=== PATIENT | female | born 1950 | race Hispanic/Latino ===

== ENCOUNTER 2016-06-08 08:07 | Outpatient (CLI) | payer BC | END 2016-06-08 08:08 | LOC: NAVSJIPCSP 08:07 | PROVIDERS: ATTEND Internal Medicine | DX: E78.5 Hyperlipidemia, unspecified (principal) | CPT/HCPCS: 36415; 80061 ==

== ENCOUNTER 2016-10-28 09:02 | Outpatient (CLI) | payer BC ==
[2016-10-28 12:38] LABS: Cardiac Risk 2.5 (Less than 4.5)
== END 2016-10-28 09:03 | disposition home or self-care (01) ==
LOC: NAVSJIPCSP 09:02
PROVIDERS: ATTEND Internal Medicine
DX: E78.5 Hyperlipidemia, unspecified (principal)
CPT/HCPCS: 36415; 80061

== ENCOUNTER 2020-07-23 13:18 | Inpatient (IN) | payer BC, MEDICARE ==
[2020-07-23] MEDS ORDERED: Acetaminophen/Codeine 30-300mg Tablet PO PRN (14:34)
[2020-07-23] MEDS: Acetaminophen 500 MG TAB PO PRN (15:23)
[2020-07-23] MEDS: Ferrous Sulfate 325 MG TAB PO SCH (17:35)
[2020-07-23] MEDS: Enoxaparin Sodium 40 MG/0.4 ML SYRINGE SC SCH (21:51)
[2020-07-24 05:52] LABS: #Basophils 0.1 thou/uL (0.0-0.2); #Eosinphils 0.4 thou/uL (0.0-0.7); #Lymphocytes 1.7 thou/uL (1.20-3.40); #Monocytes 0.6 thou/uL (0.11-0.59); #Neutrophils 1.6 thou/uL (1.40-6.50); %Basophils 1.5 % (0.0-1.0); %Lymphocytes 37.9 % (21.0-51.0); %Monocytes 14.2 % (0.0-10.0); %Neutrophils 36.5 % (42.0-75.0); Hemoglobin 11.7 g/dL (12.0-16.0); Mean Corpuscular HGB CONC 29.7 g/dL (32.0-36.0); Mean Corpuscular Hemoglobin 28.9 pg (27.0-31.0); Mean Corpuscular Volume 97.5 fL (78.0-98.0); Mean Platelet Volume 6.9 fL (7.4-10.4); Platelet Count 219 thou/uL (130-400); RBC Distribution Width 13.3 % (11.5-14.5); Red Blood Cell (RBC) Count 4.05 mill/uL (4.20-5.40); White Blood Cell (WBC) Count 4.4 thou/uL (4.8-10.8)
[2020-07-24 06:06] LABS: Anion Gap 14 mmol/L (10-20); BUN (Urea Nitrogen) 8 mg/dL (9.8-20.1); Calc. Creatinine Clearance 123 mL/min (70-130); Calcium 8.6 mg/dL (7.8-10.44); Carbon Dioxide 25 mmol/L (23-31); Chloride 106 mmol/L (98-107); Glucose 92 mg/dL (80-115); Potassium 3.5 mmol/L (3.5-5.1); Sodium 141 mmol/L (136-145)
[2020-07-24] MEDS: CeleCOXIB 100 MG CAP PO SCH (08:22)
[2020-07-24] MEDS: Bupropion 150 MG XL TAB PO SCH (08:22)
[2020-07-24] MEDS: Ferrous Sulfate 325 MG TAB PO SCH ×2 (08:22→17:46)
[2020-07-24] MEDS: Acetaminophen 500 MG TAB PO PRN (08:23)
[2020-07-24] MEDS: Gabapentin 300 MG CAP PO SCH ×2 (14:45→21:05)
[2020-07-24] MEDS: HYDROcodone/Acetaminophen 5/325 mg Tablet PO PRN (14:46)
[2020-07-24] MEDS: Enoxaparin Sodium 40 MG/0.4 ML SYRINGE SC SCH (21:06)
[2020-07-25] MEDS: Gabapentin 300 MG CAP PO SCH ×3 (08:17→21:16)
[2020-07-25] MEDS: Ferrous Sulfate 325 MG TAB PO SCH ×2 (08:17→16:51)
[2020-07-25] MEDS: CeleCOXIB 100 MG CAP PO SCH (08:17)
[2020-07-25] MEDS: Bupropion 150 MG XL TAB PO SCH (08:17)
[2020-07-25] MEDS: HYDROcodone/Acetaminophen 5/325 mg Tablet PO PRN ×2 (08:19→19:29)
[2020-07-25] MEDS: Enoxaparin Sodium 40 MG/0.4 ML SYRINGE SC SCH (21:17)
[2020-07-26] MEDS: Bupropion 150 MG XL TAB PO SCH (08:08)
[2020-07-26] MEDS: Ferrous Sulfate 325 MG TAB PO SCH ×2 (08:08→17:42)
[2020-07-26] MEDS: Gabapentin 300 MG CAP PO SCH ×3 (08:08→21:17)
[2020-07-26] MEDS: CeleCOXIB 100 MG CAP PO SCH (08:08)
[2020-07-26] MEDS: Enoxaparin Sodium 40 MG/0.4 ML SYRINGE SC SCH (21:18)
[2020-07-27] MEDS: Bupropion 150 MG XL TAB PO SCH (09:24)
[2020-07-27] MEDS: Ferrous Sulfate 325 MG TAB PO SCH ×2 (09:25→17:35)
[2020-07-27] MEDS: CeleCOXIB 100 MG CAP PO SCH (09:25)
[2020-07-27] MEDS: Gabapentin 300 MG CAP PO SCH ×3 (09:25→21:51)
[2020-07-27] MEDS: Enoxaparin Sodium 40 MG/0.4 ML SYRINGE SC SCH (21:50)
[2020-07-27] MEDS: Docusate 100 MG CAP PO SCH (21:51)
[2020-07-28] MEDS: Polyethylene Glycol 3350 17 GM Packet PO PRN (05:18)
[2020-07-28 05:22] LABS: #Basophils 0.1 thou/uL (0.0-0.2); #Eosinphils 0.3 thou/uL (0.0-0.7); #Lymphocytes 1.6 thou/uL (1.20-3.40); #Monocytes 0.6 thou/uL (0.11-0.59); #Neutrophils 2.4 thou/uL (1.40-6.50); %Eosinophils 5.9 % (0.0-10.0); %Lymphocytes 32.7 % (21.0-51.0); %Monocytes 11.7 % (0.0-10.0); %Neutrophils 47.8 % (42.0-75.0); Hemoglobin 11.4 g/dL (12.0-16.0); Mean Corpuscular HGB CONC 29.3 g/dL (32.0-36.0); Mean Corpuscular Hemoglobin 28.7 pg (27.0-31.0); Mean Corpuscular Volume 97.8 fL (78.0-98.0); Mean Platelet Volume 7.2 fL (7.4-10.4); Platelet Count 243 thou/uL (130-400); RBC Distribution Width 13.1 % (11.5-14.5); Red Blood Cell (RBC) Count 3.99 mill/uL (4.20-5.40)
[2020-07-28 05:35] LABS: Anion Gap 15 mmol/L (10-20); BUN (Urea Nitrogen) 11 mg/dL (9.8-20.1); Calc. Creatinine Clearance 112 mL/min (70-130); Calcium 8.9 mg/dL (7.8-10.44); Carbon Dioxide 24 mmol/L (23-31); Chloride 107 mmol/L (98-107); Glucose 114 mg/dL (80-115); Potassium 3.7 mmol/L (3.5-5.1); Sodium 142 mmol/L (136-145)
[2020-07-28] MEDS: Bupropion 150 MG XL TAB PO SCH (08:21)
[2020-07-28] MEDS: CeleCOXIB 100 MG CAP PO SCH (08:21)
[2020-07-28] MEDS: Ferrous Sulfate 325 MG TAB PO SCH ×2 (08:21→17:03)
[2020-07-28] MEDS: Docusate 100 MG CAP PO SCH ×2 (08:22→20:09)
[2020-07-28] MEDS: Gabapentin 300 MG CAP PO SCH ×3 (08:22→20:10)
[2020-07-28] MEDS: HYDROcodone/Acetaminophen 5/325 mg Tablet PO PRN ×2 (08:23→20:08)
[2020-07-28] MEDS: Enoxaparin Sodium 40 MG/0.4 ML SYRINGE SC SCH (20:09)
[2020-07-29] MEDS: HYDROcodone/Acetaminophen 5/325 mg Tablet PO PRN ×2 (06:20→15:01)
[2020-07-29] MEDS: Ferrous Sulfate 325 MG TAB PO SCH ×2 (08:32→17:45)
[2020-07-29] MEDS: Bupropion 150 MG XL TAB PO SCH (08:32)
[2020-07-29] MEDS: CeleCOXIB 100 MG CAP PO SCH (08:32)
[2020-07-29] MEDS: Gabapentin 300 MG CAP PO SCH ×3 (08:33→20:06)
[2020-07-29] MEDS: Docusate 100 MG CAP PO SCH ×2 (08:33→20:06)
[2020-07-29] MEDS: Enoxaparin Sodium 40 MG/0.4 ML SYRINGE SC SCH (20:07)
[2020-07-30] MEDS: HYDROcodone/Acetaminophen 5/325 mg Tablet PO PRN ×2 (06:44→15:21)
[2020-07-30] MEDS: Ferrous Sulfate 325 MG TAB PO SCH ×2 (08:19→17:33)
[2020-07-30] MEDS: Gabapentin 300 MG CAP PO SCH ×3 (08:19→20:49)
[2020-07-30] MEDS: Bupropion 150 MG XL TAB PO SCH (08:19)
[2020-07-30] MEDS: Docusate 100 MG CAP PO SCH ×2 (08:19→20:49)
[2020-07-30] MEDS: CeleCOXIB 100 MG CAP PO SCH (08:20)
[2020-07-30] MEDS: Polyethylene Glycol 3350 17 GM Packet PO PRN (15:19)
[2020-07-30] MEDS: Enoxaparin Sodium 40 MG/0.4 ML SYRINGE SC SCH (20:49)
[2020-07-31] MEDS: HYDROcodone/Acetaminophen 5/325 mg Tablet PO PRN ×2 (09:10→20:15)
[2020-07-31] MEDS: CeleCOXIB 100 MG CAP PO SCH (09:11)
[2020-07-31] MEDS: Gabapentin 300 MG CAP PO SCH ×3 (09:12→20:14)
[2020-07-31] MEDS: Bupropion 150 MG XL TAB PO SCH (09:13)
[2020-07-31] MEDS: Ferrous Sulfate 325 MG TAB PO SCH ×2 (09:13→16:03)
[2020-07-31] MEDS: Docusate 100 MG CAP PO SCH ×2 (09:13→20:18)
[2020-07-31] MEDS: Enoxaparin Sodium 40 MG/0.4 ML SYRINGE SC SCH (20:19)
[2020-08-01] MEDS: Docusate 100 MG CAP PO SCH ×2 (09:00→20:25)
[2020-08-01] MEDS: Ferrous Sulfate 325 MG TAB PO SCH ×2 (09:00→17:29)
[2020-08-01] MEDS: CeleCOXIB 100 MG CAP PO SCH (09:00)
[2020-08-01] MEDS: Gabapentin 300 MG CAP PO SCH ×3 (09:00→20:27)
[2020-08-01] MEDS: Bupropion 150 MG XL TAB PO SCH (09:01)
[2020-08-01] MEDS: HYDROcodone/Acetaminophen 5/325 mg Tablet PO PRN ×2 (13:31→20:31)
[2020-08-01] MEDS: Enoxaparin Sodium 40 MG/0.4 ML SYRINGE SC SCH (20:26)
[2020-08-02] MEDS: Bupropion 150 MG XL TAB PO SCH (09:17)
[2020-08-02] MEDS: Gabapentin 300 MG CAP PO SCH ×3 (09:17→20:33)
[2020-08-02] MEDS: Docusate 100 MG CAP PO SCH ×2 (09:19→20:33)
[2020-08-02] MEDS: Ferrous Sulfate 325 MG TAB PO SCH ×2 (09:19→17:05)
[2020-08-02] MEDS: CeleCOXIB 100 MG CAP PO SCH (09:19)
[2020-08-02] MEDS: Polyethylene Glycol 3350 17 GM Packet PO PRN (09:21)
[2020-08-02] MEDS: HYDROcodone/Acetaminophen 5/325 mg Tablet PO PRN (17:05)
[2020-08-02] MEDS: Enoxaparin Sodium 40 MG/0.4 ML SYRINGE SC SCH (20:34)
[2020-08-03] MEDS: CeleCOXIB 100 MG CAP PO SCH (08:12)
[2020-08-03] MEDS: Ferrous Sulfate 325 MG TAB PO SCH ×2 (08:12→17:07)
[2020-08-03] MEDS: Bupropion 150 MG XL TAB PO SCH (08:12)
[2020-08-03] MEDS: Docusate 100 MG CAP PO SCH ×2 (08:12→20:32)
[2020-08-03] MEDS: Gabapentin 300 MG CAP PO SCH ×3 (08:13→20:32)
[2020-08-03] MEDS: HYDROcodone/Acetaminophen 5/325 mg Tablet PO PRN (11:15)
[2020-08-03] MEDS: Polyethylene Glycol 3350 17 GM Packet PO PRN (14:49)
[2020-08-03] MEDS: Enoxaparin Sodium 40 MG/0.4 ML SYRINGE SC SCH (20:33)
[2020-08-03 22:16] VITALS: BMI 37.0
[2020-08-04] MEDS: HYDROcodone/Acetaminophen 5/325 mg Tablet PO PRN ×2 (07:58→15:46)
[2020-08-04] MEDS: Gabapentin 300 MG CAP PO SCH ×3 (07:59→20:36)
[2020-08-04] MEDS: Ferrous Sulfate 325 MG TAB PO SCH ×2 (07:59→18:03)
[2020-08-04] MEDS: Bupropion 150 MG XL TAB PO SCH (07:59)
[2020-08-04] MEDS: CeleCOXIB 100 MG CAP PO SCH (08:00)
[2020-08-04] MEDS: Docusate 100 MG CAP PO SCH ×2 (08:01→20:36)
[2020-08-04] MEDS: Polyethylene Glycol 3350 17 GM Packet PO PRN (08:02)
[2020-08-04] MEDS: Enoxaparin Sodium 40 MG/0.4 ML SYRINGE SC SCH (20:38)
[2020-08-04] MEDS: Acetaminophen 500 MG TAB PO PRN (20:38)
[2020-08-05] MEDS: HYDROcodone/Acetaminophen 5/325 mg Tablet PO PRN ×2 (06:03→20:29)
[2020-08-05] MEDS: CeleCOXIB 100 MG CAP PO SCH (08:56)
[2020-08-05] MEDS: Bupropion 150 MG XL TAB PO SCH (08:58)
[2020-08-05] MEDS: Ferrous Sulfate 325 MG TAB PO SCH ×2 (08:58→17:34)
[2020-08-05] MEDS: Gabapentin 300 MG CAP PO SCH ×2 (08:58→20:28)
[2020-08-05] MEDS: Docusate 100 MG CAP PO SCH ×2 (08:59→20:28)
[2020-08-05] MEDS: Polyethylene Glycol 3350 17 GM Packet PO SCH (08:59)
[2020-08-05] MEDS: Enoxaparin Sodium 40 MG/0.4 ML SYRINGE SC SCH (20:28)
[2020-08-06] MEDS: Gabapentin 300 MG CAP PO SCH ×4 (07:20→21:05)
[2020-08-06] MEDS: HYDROcodone/Acetaminophen 5/325 mg Tablet PO PRN ×2 (08:21→21:05)
[2020-08-06] MEDS: Bupropion 150 MG XL TAB PO SCH (08:22)
[2020-08-06] MEDS: Ferrous Sulfate 325 MG TAB PO SCH ×2 (08:22→16:51)
[2020-08-06] MEDS: CeleCOXIB 100 MG CAP PO SCH (08:23)
[2020-08-06] MEDS: Docusate 100 MG CAP PO SCH ×2 (08:23→21:05)
[2020-08-06] MEDS: Polyethylene Glycol 3350 17 GM Packet PO SCH (08:24)
[2020-08-06] MEDS: Enoxaparin Sodium 40 MG/0.4 ML SYRINGE SC SCH (21:05)
[2020-08-07] MEDS: HYDROcodone/Acetaminophen 5/325 mg Tablet PO PRN ×3 (05:58→20:19)
[2020-08-07] MEDS: Ferrous Sulfate 325 MG TAB PO SCH ×2 (08:15→16:27)
[2020-08-07] MEDS: CeleCOXIB 100 MG CAP PO SCH (08:15)
[2020-08-07] MEDS: Bupropion 150 MG XL TAB PO SCH (08:15)
[2020-08-07] MEDS: Docusate 100 MG CAP PO SCH ×2 (08:16→20:20)
[2020-08-07] MEDS: Gabapentin 300 MG CAP PO SCH ×3 (08:16→20:20)
[2020-08-07] MEDS: Polyethylene Glycol 3350 17 GM Packet PO SCH (08:17)
[2020-08-07] MEDS: Enoxaparin Sodium 40 MG/0.4 ML SYRINGE SC SCH (20:20)
[2020-08-08] MEDS: HYDROcodone/Acetaminophen 5/325 mg Tablet PO PRN (08:02)
[2020-08-08] MEDS: CeleCOXIB 100 MG CAP PO SCH (08:02)
[2020-08-08] MEDS: Docusate 100 MG CAP PO SCH (08:02)
[2020-08-08] MEDS: Gabapentin 300 MG CAP PO SCH (08:03)
[2020-08-08] MEDS: Bupropion 150 MG XL TAB PO SCH (08:03)
[2020-08-08] MEDS: Ferrous Sulfate 325 MG TAB PO SCH (08:04)
[2020-08-08] MEDS: Polyethylene Glycol 3350 17 GM Packet PO SCH (08:04)
[2020-08-08 08:39] VITALS: BP 109/59; TEMP 97.8
== END 2020-08-08 10:00 | disposition home or self-care (01) | DRG 560 ==
LOC: NAV ACUTE 13:18
PROVIDERS: ADMIT Internal Medicine; ATTEND Internal Medicine
DX: S72.91XD Unspecified fracture of right femur, subsequent encounter for closed fracture with routine healing (principal); D62 Acute posthemorrhagic anemia; E66.01 Morbid (severe) obesity due to excess calories; F41.9 Anxiety disorder, unspecified; F32.9 Major depressive disorder, single episode, unspecified; Z96.643 Presence of artificial hip joint, bilateral; K21.9 Gastro-esophageal reflux disease without esophagitis; M19.90 Unspecified osteoarthritis, unspecified site; G62.9 Polyneuropathy, unspecified; W19.XXXD Unspecified fall, subsequent encounter; Z68.37 Body mass index [BMI] 37.0-37.9, adult; R53.81 Other malaise; Z87.442 Personal history of urinary calculi
CPT/HCPCS: 80048; 85025; J1650

== ENCOUNTER 2021-03-05 13:27 | Inpatient (IN) | payer BC, MEDICARE ==
[2021-03-05] MEDS: Docusate 100 MG CAP PO SCH (20:34)
[2021-03-05] MEDS: Gabapentin 300 MG CAP PO SCH (20:34)
[2021-03-05] MEDS: Ascorbic Acid 500 mg Chewable Tablet PO SCH (20:36)
[2021-03-05] MEDS: HYDROcodone/Acetaminophen 10/325 mg Tablet PO PRN (20:36)
[2021-03-05] MEDS: Aspirin 81 mg Enteric Coated Tablet PO SCH (20:36)
[2021-03-06] MEDS: HYDROcodone/Acetaminophen 10/325 mg Tablet PO PRN ×4 (05:28→20:34)
[2021-03-06 06:32] LABS: #Basophils 0.1 thou/uL (0.0-0.2); #Eosinphils 0.5 thou/uL (0.0-0.7); #Lymphocytes 1.5 thou/uL (1.20-3.40); #Monocytes 0.9 thou/uL (0.11-0.59); #Neutrophils 3.6 thou/uL (1.40-6.50); %Basophils 1.5 % (0.0-1.0); %Eosinophils 7.3 % (0.0-10.0); %Lymphocytes 22.9 % (21.0-51.0); %Monocytes 13.8 % (0.0-10.0); %Neutrophils 54.5 % (42.0-75.0); Hemoglobin 8.2 g/dL (12.0-16.0); Mean Corpuscular HGB CONC 32.1 g/dL (32.0-36.0); Mean Corpuscular Hemoglobin 31.6 pg (27.0-31.0); Mean Corpuscular Volume 98.4 fL (78.0-98.0); Mean Platelet Volume 5.8 fL (7.4-10.4); Platelet Count 376 thou/uL (130-400); RBC Distribution Width 12.4 % (11.5-14.5); Red Blood Cell (RBC) Count 2.58 mill/uL (4.20-5.40); White Blood Cell (WBC) Count 6.6 thou/uL (4.8-10.8)
[2021-03-06 06:50] LABS: ALT (SGPT) 10 U/L (8-55); AST (SGOT) 14 U/L (5-34); Albumin 2.8 g/dL (3.4-4.8); Alkaline Phosphatase 94 U/L (40-110); Anion Gap 12 mmol/L (10-20); BUN (Urea Nitrogen) 10 mg/dL (9.8-20.1); Bilirubin, Total 0.7 mg/dL (0.2-1.2); Calc. Creatinine Clearance 123 mL/min (70-130); Calcium 8.9 mg/dL (7.8-10.44); Carbon Dioxide 28 mmol/L (23-31); Chloride 101 mmol/L (98-107); Globulin 2.7 g/dL (2.4-3.5); Glucose 111 mg/dL (80-115); Potassium 3.8 mmol/L (3.5-5.1); Protein, Total 5.5 g/dL (5.8-8.1); Sodium 137 mmol/L (136-145)
[2021-03-06] MEDS: Bupropion 150 MG XL TAB PO SCH (08:31)
[2021-03-06] MEDS: Gabapentin 300 MG CAP PO SCH ×3 (08:31→20:33)
[2021-03-06] MEDS: Aspirin 81 mg Enteric Coated Tablet PO SCH ×2 (08:31→20:33)
[2021-03-06] MEDS: Docusate 100 MG CAP PO SCH ×2 (08:31→20:33)
[2021-03-06] MEDS: Ascorbic Acid 500 mg Chewable Tablet PO SCH ×2 (08:31→20:33)
[2021-03-06] MEDS: CeleCOXIB 100 MG CAP PO SCH (08:33)
[2021-03-07] MEDS: HYDROcodone/Acetaminophen 10/325 mg Tablet PO PRN ×3 (06:51→20:07)
[2021-03-07] MEDS: Bupropion 150 MG XL TAB PO SCH (07:42)
[2021-03-07] MEDS: CeleCOXIB 100 MG CAP PO SCH (07:42)
[2021-03-07] MEDS: Docusate 100 MG CAP PO SCH ×2 (07:42→20:06)
[2021-03-07] MEDS: Aspirin 81 mg Enteric Coated Tablet PO SCH ×2 (07:43→20:06)
[2021-03-07] MEDS: Ascorbic Acid 500 mg Chewable Tablet PO SCH ×2 (07:43→20:06)
[2021-03-07] MEDS: Gabapentin 300 MG CAP PO SCH ×3 (07:43→20:06)
[2021-03-07 13:57] LABS: SARS-CoV-2 PCR by NAA Not Detected (NotDetected)
[2021-03-08] MEDS: CeleCOXIB 100 MG CAP PO SCH (07:29)
[2021-03-08] MEDS: Ascorbic Acid 500 mg Chewable Tablet PO SCH ×2 (07:29→20:37)
[2021-03-08] MEDS: Bupropion 150 MG XL TAB PO SCH (07:30)
[2021-03-08] MEDS: Aspirin 81 mg Enteric Coated Tablet PO SCH ×2 (07:30→20:37)
[2021-03-08] MEDS: Gabapentin 300 MG CAP PO SCH ×3 (07:30→20:35)
[2021-03-08] MEDS: HYDROcodone/Acetaminophen 10/325 mg Tablet PO PRN ×4 (07:31→21:51)
[2021-03-08] MEDS: Docusate 100 MG CAP PO SCH ×2 (07:31→20:35)
[2021-03-08] MEDS: Acetaminophen 500 MG TAB PO PRN (17:15)
[2021-03-09] MEDS: Aspirin 81 mg Enteric Coated Tablet PO SCH ×2 (07:49→20:40)
[2021-03-09] MEDS: Ascorbic Acid 500 mg Chewable Tablet PO SCH ×2 (07:49→20:39)
[2021-03-09] MEDS: Docusate 100 MG CAP PO SCH ×2 (07:50→20:39)
[2021-03-09] MEDS: Bupropion 150 MG XL TAB PO SCH (07:50)
[2021-03-09] MEDS: CeleCOXIB 100 MG CAP PO SCH (07:51)
[2021-03-09] MEDS: Gabapentin 300 MG CAP PO SCH ×3 (07:52→20:39)
[2021-03-09] MEDS: HYDROcodone/Acetaminophen 10/325 mg Tablet PO PRN ×3 (07:53→19:35)
[2021-03-10] MEDS: HYDROcodone/Acetaminophen 5/325 mg Tablet PO PRN (05:53)
[2021-03-10 06:17] LABS: #Basophils 0.1 thou/uL (0.0-0.2); #Eosinphils 0.5 thou/uL (0.0-0.7); #Lymphocytes 1.5 thou/uL (1.20-3.40); #Monocytes 0.8 thou/uL (0.11-0.59); #Neutrophils 3.1 thou/uL (1.40-6.50); %Basophils 1.2 % (0.0-1.0); %Eosinophils 7.9 % (0.0-10.0); %Lymphocytes 25.4 % (21.0-51.0); %Monocytes 12.9 % (0.0-10.0); %Neutrophils 52.5 % (42.0-75.0); Hemoglobin 9.1 g/dL (12.0-16.0); Mean Corpuscular HGB CONC 31.9 g/dL (32.0-36.0); Mean Corpuscular Hemoglobin 31.4 pg (27.0-31.0); Mean Corpuscular Volume 98.4 fL (78.0-98.0); Mean Platelet Volume 5.6 fL (7.4-10.4); Platelet Count 467 thou/uL (130-400); RBC Distribution Width 12.9 % (11.5-14.5); Red Blood Cell (RBC) Count 2.89 mill/uL (4.20-5.40)
[2021-03-10] MEDS: Docusate 100 MG CAP PO SCH ×2 (07:40→20:40)
[2021-03-10] MEDS: Aspirin 81 mg Enteric Coated Tablet PO SCH ×2 (07:41→20:40)
[2021-03-10] MEDS: Bupropion 150 MG XL TAB PO SCH (07:41)
[2021-03-10] MEDS: Gabapentin 300 MG CAP PO SCH ×3 (07:41→20:40)
[2021-03-10] MEDS: Ascorbic Acid 500 mg Chewable Tablet PO SCH ×2 (07:41→20:40)
[2021-03-10] MEDS: CeleCOXIB 100 MG CAP PO SCH (07:41)
[2021-03-10] MEDS: HYDROcodone/Acetaminophen 10/325 mg Tablet PO PRN ×2 (09:48→18:20)
[2021-03-11] MEDS: Docusate 100 MG CAP PO SCH ×2 (07:51→21:01)
[2021-03-11] MEDS: Bupropion 150 MG XL TAB PO SCH (07:51)
[2021-03-11] MEDS: Ascorbic Acid 500 mg Chewable Tablet PO SCH ×2 (07:52→21:02)
[2021-03-11] MEDS: Gabapentin 300 MG CAP PO SCH ×3 (07:52→21:02)
[2021-03-11] MEDS: Aspirin 81 mg Enteric Coated Tablet PO SCH ×2 (07:52→21:01)
[2021-03-11] MEDS: CeleCOXIB 100 MG CAP PO SCH (07:52)
[2021-03-11] MEDS: HYDROcodone/Acetaminophen 10/325 mg Tablet PO PRN ×2 (07:53→18:15)
[2021-03-12] MEDS: HYDROcodone/Acetaminophen 5/325 mg Tablet PO PRN (03:28)
[2021-03-12] MEDS: Docusate 100 MG CAP PO SCH ×2 (08:58→21:37)
[2021-03-12] MEDS: Aspirin 81 mg Enteric Coated Tablet PO SCH ×2 (08:58→21:37)
[2021-03-12] MEDS: Gabapentin 300 MG CAP PO SCH ×3 (08:58→21:36)
[2021-03-12] MEDS: Ascorbic Acid 500 mg Chewable Tablet PO SCH ×2 (09:00→21:36)
[2021-03-12] MEDS: Bupropion 150 MG XL TAB PO SCH (09:00)
[2021-03-12] MEDS: CeleCOXIB 100 MG CAP PO SCH (09:00)
[2021-03-12] MEDS: HYDROcodone/Acetaminophen 10/325 mg Tablet PO PRN (09:01)
[2021-03-13] MEDS: HYDROcodone/Acetaminophen 5/325 mg Tablet PO PRN ×2 (08:35→18:13)
[2021-03-13] MEDS: Docusate 100 MG CAP PO SCH ×2 (09:30→20:49)
[2021-03-13] MEDS: Bupropion 150 MG XL TAB PO SCH (09:30)
[2021-03-13] MEDS: CeleCOXIB 100 MG CAP PO SCH (09:31)
[2021-03-13] MEDS: Ascorbic Acid 500 mg Chewable Tablet PO SCH ×2 (09:32→20:49)
[2021-03-13] MEDS: Gabapentin 300 MG CAP PO SCH ×3 (09:32→20:49)
[2021-03-13] MEDS: Aspirin 81 mg Enteric Coated Tablet PO SCH ×2 (09:32→20:49)
[2021-03-13] MEDS: Acetaminophen 500 MG TAB PO PRN (10:13)
[2021-03-14] MEDS: Gabapentin 300 MG CAP PO SCH ×3 (08:22→21:14)
[2021-03-14] MEDS: Bupropion 150 MG XL TAB PO SCH (08:23)
[2021-03-14] MEDS: CeleCOXIB 100 MG CAP PO SCH (08:24)
[2021-03-14] MEDS: Docusate 100 MG CAP PO SCH ×2 (08:24→21:14)
[2021-03-14] MEDS: Aspirin 81 mg Enteric Coated Tablet PO SCH ×2 (08:25→21:14)
[2021-03-14] MEDS: Ascorbic Acid 500 mg Chewable Tablet PO SCH ×2 (08:30→21:14)
[2021-03-14] MEDS: HYDROcodone/Acetaminophen 5/325 mg Tablet PO PRN (18:41)
[2021-03-15] MEDS: CeleCOXIB 100 MG CAP PO SCH (08:32)
[2021-03-15] MEDS: Docusate 100 MG CAP PO SCH ×2 (08:32→20:37)
[2021-03-15] MEDS: Gabapentin 300 MG CAP PO SCH ×3 (08:33→20:36)
[2021-03-15] MEDS: Ascorbic Acid 500 mg Chewable Tablet PO SCH ×2 (08:34→20:37)
[2021-03-15] MEDS: Aspirin 81 mg Enteric Coated Tablet PO SCH ×2 (08:34→20:37)
[2021-03-15] MEDS: Bupropion 150 MG XL TAB PO SCH (08:34)
[2021-03-15] MEDS: HYDROcodone/Acetaminophen 5/325 mg Tablet PO PRN (17:14)
[2021-03-15 17:23] LABS: SARS-CoV-2 PCR by NAA Not Detected (NotDetected)
[2021-03-16] MEDS: Aspirin 81 mg Enteric Coated Tablet PO SCH ×2 (09:03→20:25)
[2021-03-16] MEDS: Gabapentin 300 MG CAP PO SCH ×3 (09:03→20:25)
[2021-03-16] MEDS: CeleCOXIB 100 MG CAP PO SCH (09:04)
[2021-03-16] MEDS: Docusate 100 MG CAP PO SCH ×2 (09:05→20:25)
[2021-03-16] MEDS: Bupropion 150 MG XL TAB PO SCH (09:05)
[2021-03-16] MEDS: Ascorbic Acid 500 mg Chewable Tablet PO SCH ×2 (09:05→20:25)
[2021-03-16] MEDS: HYDROcodone/Acetaminophen 5/325 mg Tablet PO PRN ×2 (14:43→20:22)
[2021-03-17 06:50] LABS: #Basophils 0.1 thou/uL (0.0-0.2); #Eosinphils 0.5 thou/uL (0.0-0.7); #Lymphocytes 1.3 thou/uL (1.20-3.40); #Monocytes 0.8 thou/uL (0.11-0.59); #Neutrophils 1.8 thou/uL (1.40-6.50); %Basophils 2.8 % (0.0-1.0); %Lymphocytes 31.9 % (21.0-51.0); %Monocytes 16.1 % (0.0-10.0); %Neutrophils 42.1 % (42.0-75.0); Hemoglobin 10.4 g/dL (12.0-16.0); Mean Corpuscular Hemoglobin 30.6 pg (27.0-31.0); Mean Corpuscular Volume 98.9 fL (78.0-98.0); Mean Platelet Volume 6.2 fL (7.4-10.4); Platelet Count 334 thou/uL (130-400); Red Blood Cell (RBC) Count 3.39 mill/uL (4.20-5.40); White Blood Cell (WBC) Count 4.2 thou/uL (4.8-10.8)
[2021-03-17 06:52] LABS: Anion Gap 12 mmol/L (10-20); BUN (Urea Nitrogen) 18 mg/dL (9.8-20.1); Calc. Creatinine Clearance 101 mL/min (70-130); Carbon Dioxide 25 mmol/L (23-31); Chloride 107 mmol/L (98-107); Glucose 101 mg/dL (80-115); Sodium 140 mmol/L (136-145)
[2021-03-17] MEDS: Docusate 100 MG CAP PO SCH ×2 (08:10→20:45)
[2021-03-17] MEDS: CeleCOXIB 100 MG CAP PO SCH (08:10)
[2021-03-17] MEDS: Aspirin 81 mg Enteric Coated Tablet PO SCH ×2 (08:10→20:45)
[2021-03-17] MEDS: Ascorbic Acid 500 mg Chewable Tablet PO SCH ×2 (08:11→20:45)
[2021-03-17] MEDS: Bupropion 150 MG XL TAB PO SCH (08:11)
[2021-03-17] MEDS: Gabapentin 300 MG CAP PO SCH ×3 (08:11→20:45)
[2021-03-17] MEDS: HYDROcodone/Acetaminophen 5/325 mg Tablet PO PRN (18:38)
[2021-03-18] MEDS: Ascorbic Acid 500 mg Chewable Tablet PO SCH ×2 (08:27→20:55)
[2021-03-18] MEDS: Bupropion 150 MG XL TAB PO SCH (08:27)
[2021-03-18] MEDS: Docusate 100 MG CAP PO SCH ×2 (08:27→20:55)
[2021-03-18] MEDS: CeleCOXIB 100 MG CAP PO SCH (08:28)
[2021-03-18] MEDS: Aspirin 81 mg Enteric Coated Tablet PO SCH ×2 (08:30→20:55)
[2021-03-18] MEDS: Gabapentin 300 MG CAP PO SCH ×3 (08:30→20:54)
[2021-03-18] MEDS: HYDROcodone/Acetaminophen 5/325 mg Tablet PO PRN ×2 (08:40→17:53)
[2021-03-19] MEDS: CeleCOXIB 100 MG CAP PO SCH (09:01)
[2021-03-19] MEDS: Bupropion 150 MG XL TAB PO SCH (09:02)
[2021-03-19] MEDS: Aspirin 81 mg Enteric Coated Tablet PO SCH ×2 (09:03→20:11)
[2021-03-19] MEDS: Gabapentin 300 MG CAP PO SCH ×3 (09:03→20:11)
[2021-03-19] MEDS: Ascorbic Acid 500 mg Chewable Tablet PO SCH ×2 (09:03→20:12)
[2021-03-19] MEDS: Docusate 100 MG CAP PO SCH ×2 (09:03→20:11)
[2021-03-19] MEDS: HYDROcodone/Acetaminophen 5/325 mg Tablet PO PRN ×2 (10:44→20:09)
[2021-03-20] MEDS: HYDROcodone/Acetaminophen 5/325 mg Tablet PO PRN ×2 (07:34→17:16)
[2021-03-20] MEDS: CeleCOXIB 100 MG CAP PO SCH (07:34)
[2021-03-20] MEDS: Bupropion 150 MG XL TAB PO SCH (07:35)
[2021-03-20] MEDS: Docusate 100 MG CAP PO SCH ×2 (07:35→20:30)
[2021-03-20] MEDS: Gabapentin 300 MG CAP PO SCH ×3 (07:35→20:29)
[2021-03-20] MEDS: Ascorbic Acid 500 mg Chewable Tablet PO SCH ×2 (07:35→20:30)
[2021-03-20] MEDS: Aspirin 81 mg Enteric Coated Tablet PO SCH ×2 (07:35→20:30)
[2021-03-21] MEDS: HYDROcodone/Acetaminophen 5/325 mg Tablet PO PRN ×2 (05:59→17:26)
[2021-03-21] MEDS: Bupropion 150 MG XL TAB PO SCH (09:00)
[2021-03-21] MEDS: CeleCOXIB 100 MG CAP PO SCH (09:01)
[2021-03-21] MEDS: Gabapentin 300 MG CAP PO SCH ×3 (09:02→20:24)
[2021-03-21] MEDS: Aspirin 81 mg Enteric Coated Tablet PO SCH ×2 (09:02→20:23)
[2021-03-21] MEDS: Docusate 100 MG CAP PO SCH ×2 (09:03→20:24)
[2021-03-21] MEDS: Ascorbic Acid 500 mg Chewable Tablet PO SCH ×2 (10:02→20:23)
[2021-03-21] MEDS: Acetaminophen 500 MG TAB PO PRN (10:05)
[2021-03-22 04:56] VITALS: BMI 37.3
[2021-03-22 07:15] VITALS: BP 96/67; TEMP 98.7
[2021-03-22] MEDS: Aspirin 81 mg Enteric Coated Tablet PO SCH (07:59)
[2021-03-22] MEDS: CeleCOXIB 100 MG CAP PO SCH (07:59)
[2021-03-22] MEDS: Bupropion 150 MG XL TAB PO SCH (07:59)
[2021-03-22] MEDS: Ascorbic Acid 500 mg Chewable Tablet PO SCH (07:59)
[2021-03-22] MEDS: Docusate 100 MG CAP PO SCH (08:00)
[2021-03-22] MEDS: Gabapentin 300 MG CAP PO SCH (08:00)
== END 2021-03-22 12:14 | disposition home health service (06) | DRG 560 ==
LOC: NAV ACUTE 13:27
PROVIDERS: ADMIT Internal Medicine; ATTEND Internal Medicine
DX: T84.114A Breakdown (mechanical) of internal fixation device of right femur, initial encounter (principal); D62 Acute posthemorrhagic anemia; M19.90 Unspecified osteoarthritis, unspecified site; F41.9 Anxiety disorder, unspecified; F32.A Depression, unspecified; E66.01 Morbid (severe) obesity due to excess calories; Z96.643 Presence of artificial hip joint, bilateral; D64.9 Anemia, unspecified; G62.9 Polyneuropathy, unspecified; D63.8 Anemia in other chronic diseases classified elsewhere; R53.81 Other malaise; Y83.8 Other surgical procedures as the cause of abnormal reaction of the patient, or of later complication, without mention of misadventure at the time of the procedure; Z20.822 Contact with and (suspected) exposure to COVID-19
CPT/HCPCS: 36415; 80048; 80053; 85025; U0003; U0005

== ENCOUNTER 2022-06-09 15:14 | Inpatient (IN) | payer BC, MEDICARE ==
[2022-06-10] MEDS ORDERED: HYDROcodone/Acetaminophen 10/325 mg Tablet PO PRN (15:26)
[2022-06-10] MEDS ORDERED: Promethazine HCl 25 MG/ML VIAL IM PRN (15:26)
[2022-06-10] MEDS ORDERED: diphenhydrAMINE 25 MG CAP PO PRN (15:26)
[2022-06-10] MEDS ORDERED: Ondansetron ODT 4 MG TAB SL PRN (15:30)
[2022-06-10] MEDS ORDERED: Bisacodyl 5 MG TAB PO PRN (15:30)
[2022-06-12] MEDS ORDERED: Acetaminophen 325 MG TAB PO PRN (17:49)
[2022-06-12] MEDS ORDERED: Albuterol 200 PUFF (6.7GM INHALER) INH PRN (17:57)
[2022-06-12] MEDS: HYDROcodone/Acetaminophen 10/325 mg Tablet PO PRN ×2 (18:01→22:12)
[2022-06-12] MEDS: Gabapentin 300 MG CAP PO SCH ×6 (18:04→20:34)
[2022-06-12] MEDS: Bupropion 150 MG XL TAB PO SCH ×2 (18:08→18:09)
[2022-06-12] MEDS: Aspirin 81 mg Enteric Coated Tablet PO SCH ×4 (18:09→20:35)
[2022-06-12] MEDS: Ferrous Gluconate 324 MG TAB PO SCH ×2 (20:33→20:34)
[2022-06-12] MEDS: Senokot S 8.6-50 MG TAB PO SCH (20:35)
[2022-06-13] MEDS: HYDROcodone/Acetaminophen 10/325 mg Tablet PO PRN ×5 (04:08→22:19)
[2022-06-13] MEDS: Senokot S 8.6-50 MG TAB PO SCH ×2 (08:54→20:40)
[2022-06-13] MEDS: Gabapentin 300 MG CAP PO SCH ×3 (08:54→20:39)
[2022-06-13] MEDS: Multivitamin W/ Minerals 1 TAB PO SCH (08:54)
[2022-06-13] MEDS: Bupropion 150 MG XL TAB PO SCH (08:55)
[2022-06-13] MEDS: Aspirin 81 mg Enteric Coated Tablet PO SCH ×2 (08:56→20:40)
[2022-06-13] MEDS: Ferrous Gluconate 324 MG TAB PO SCH ×2 (08:56→20:40)
[2022-06-14] MEDS: HYDROcodone/Acetaminophen 10/325 mg Tablet PO PRN ×4 (06:51→21:26)
[2022-06-14] MEDS: Bupropion 150 MG XL TAB PO SCH (08:44)
[2022-06-14] MEDS: Aspirin 81 mg Enteric Coated Tablet PO SCH ×2 (08:45→21:20)
[2022-06-14] MEDS: Senokot S 8.6-50 MG TAB PO SCH ×2 (08:45→21:21)
[2022-06-14] MEDS: Gabapentin 300 MG CAP PO SCH ×3 (08:45→21:21)
[2022-06-14] MEDS: Ferrous Gluconate 324 MG TAB PO SCH ×2 (08:45→21:20)
[2022-06-14] MEDS: Multivitamin W/ Minerals 1 TAB PO SCH (08:46)
[2022-06-15] MEDS: HYDROcodone/Acetaminophen 10/325 mg Tablet PO PRN ×5 (01:19→23:28)
[2022-06-15] MEDS: Bupropion 150 MG XL TAB PO SCH (09:11)
[2022-06-15] MEDS: Multivitamin W/ Minerals 1 TAB PO SCH (09:11)
[2022-06-15] MEDS: Ferrous Gluconate 324 MG TAB PO SCH ×2 (09:12→21:24)
[2022-06-15] MEDS: Senokot S 8.6-50 MG TAB PO SCH ×2 (09:12→21:24)
[2022-06-15] MEDS: Aspirin 81 mg Enteric Coated Tablet PO SCH ×2 (09:12→21:24)
[2022-06-15] MEDS: Gabapentin 300 MG CAP PO SCH ×3 (09:12→21:23)
[2022-06-16] MEDS: Bupropion 150 MG XL TAB PO SCH (08:23)
[2022-06-16] MEDS: Multivitamin W/ Minerals 1 TAB PO SCH (08:23)
[2022-06-16] MEDS: HYDROcodone/Acetaminophen 10/325 mg Tablet PO PRN ×3 (08:24→22:38)
[2022-06-16] MEDS: Ferrous Gluconate 324 MG TAB PO SCH ×2 (08:25→20:55)
[2022-06-16] MEDS: Gabapentin 300 MG CAP PO SCH ×3 (08:25→20:55)
[2022-06-16] MEDS: Aspirin 81 mg Enteric Coated Tablet PO SCH ×2 (08:26→20:55)
[2022-06-16] MEDS: Senokot S 8.6-50 MG TAB PO SCH ×2 (08:26→20:55)
[2022-06-17] MEDS: HYDROcodone/Acetaminophen 10/325 mg Tablet PO PRN ×4 (06:00→17:51)
[2022-06-17 06:06] LABS: #Basophils 0.1 thou/uL (0.0-0.2); #Eosinphils 0.5 thou/uL (0.0-0.7); #Lymphocytes 1.7 thou/uL (1.20-3.40); #Neutrophils 3.5 thou/uL (1.40-6.50); %Eosinophils 7.4 % (0.0-10.0); %Neutrophils 51.6 % (42.0-75.0); Hemoglobin 9.7 g/dL (12.0-16.0); Mean Corpuscular HGB CONC 32.7 g/dL (32.0-36.0); Mean Corpuscular Hemoglobin 29.4 pg (27.0-31.0); Mean Corpuscular Volume 90.1 fl (78.0-98.0); Mean Platelet Volume 5.9 fL (7.4-10.4); Platelet Count 342 10x3/uL (130-400); RBC Distribution Width 13.3 % (11.5-14.5); Red Blood Cell (RBC) Count 3.31 mill/uL (4.20-5.40); White Blood Cell (WBC) Count 6.9 10x3/uL (4.8-10.8)
[2022-06-17 06:21] LABS: Anion Gap 16 mmol/L (10-20); BUN (Urea Nitrogen) 14 mg/dL (9.8-20.1); Calc. Creatinine Clearance 122 mL/min (70-130); Calcium 8.8 mg/dL (7.8-10.44); Carbon Dioxide 26 mmol/L (23-31); Chloride 102 mmol/L (98-107); Estimated GFR 85; Glucose 111 mg/dL (83-110); Potassium 3.7 mmol/L (3.5-5.1); Sodium 140 mmol/L (136-145)
[2022-06-17] MEDS: Multivitamin W/ Minerals 1 TAB PO SCH (09:27)
[2022-06-17] MEDS: Gabapentin 300 MG CAP PO SCH ×3 (09:28→20:38)
[2022-06-17] MEDS: Bupropion 150 MG XL TAB PO SCH (09:29)
[2022-06-17] MEDS: Ferrous Gluconate 324 MG TAB PO SCH ×2 (09:58→20:39)
[2022-06-17] MEDS: Aspirin 81 mg Enteric Coated Tablet PO SCH ×2 (09:59→20:39)
[2022-06-17] MEDS: Senokot S 8.6-50 MG TAB PO SCH ×2 (09:59→20:39)
[2022-06-18] MEDS: HYDROcodone/Acetaminophen 10/325 mg Tablet PO PRN ×5 (02:40→19:44)
[2022-06-18] MEDS: Senokot S 8.6-50 MG TAB PO SCH ×2 (07:42→20:40)
[2022-06-18] MEDS: Bupropion 150 MG XL TAB PO SCH (07:42)
[2022-06-18] MEDS: Gabapentin 300 MG CAP PO SCH ×3 (07:43→20:40)
[2022-06-18] MEDS: Ferrous Gluconate 324 MG TAB PO SCH ×2 (07:43→20:40)
[2022-06-18] MEDS: Aspirin 81 mg Enteric Coated Tablet PO SCH ×2 (07:43→20:40)
[2022-06-18] MEDS: Multivitamin W/ Minerals 1 TAB PO SCH (07:43)
[2022-06-19] MEDS: HYDROcodone/Acetaminophen 10/325 mg Tablet PO PRN ×5 (03:29→20:40)
[2022-06-19] MEDS: Ferrous Gluconate 324 MG TAB PO SCH ×2 (07:39→20:41)
[2022-06-19] MEDS: Aspirin 81 mg Enteric Coated Tablet PO SCH ×2 (07:39→20:41)
[2022-06-19] MEDS: Senokot S 8.6-50 MG TAB PO SCH ×2 (07:39→20:41)
[2022-06-19] MEDS: Bupropion 150 MG XL TAB PO SCH (07:39)
[2022-06-19] MEDS: Multivitamin W/ Minerals 1 TAB PO SCH (07:39)
[2022-06-19] MEDS: Gabapentin 300 MG CAP PO SCH ×3 (07:40→20:38)
[2022-06-20] MEDS: HYDROcodone/Acetaminophen 10/325 mg Tablet PO PRN ×5 (05:35→22:43)
[2022-06-20] MEDS: Bupropion 150 MG XL TAB PO SCH (09:08)
[2022-06-20] MEDS: Multivitamin W/ Minerals 1 TAB PO SCH (09:08)
[2022-06-20] MEDS: Senokot S 8.6-50 MG TAB PO SCH ×2 (09:08→20:28)
[2022-06-20] MEDS: Aspirin 81 mg Enteric Coated Tablet PO SCH ×2 (09:08→20:28)
[2022-06-20] MEDS: Ferrous Gluconate 324 MG TAB PO SCH ×2 (09:08→20:28)
[2022-06-20] MEDS: Gabapentin 300 MG CAP PO SCH ×3 (09:09→20:26)
[2022-06-21] MEDS: HYDROcodone/Acetaminophen 10/325 mg Tablet PO PRN ×4 (05:45→20:36)
[2022-06-21] MEDS: Senokot S 8.6-50 MG TAB PO SCH ×3 (09:52→20:41)
[2022-06-21] MEDS: Aspirin 81 mg Enteric Coated Tablet PO SCH ×2 (09:54→20:33)
[2022-06-21] MEDS: Multivitamin W/ Minerals 1 TAB PO SCH (09:55)
[2022-06-21] MEDS: Bupropion 150 MG XL TAB PO SCH (09:55)
[2022-06-21] MEDS: Gabapentin 300 MG CAP PO SCH ×3 (09:55→20:41)
[2022-06-21] MEDS: Ferrous Gluconate 324 MG TAB PO SCH ×2 (09:55→20:36)
[2022-06-21 14:26] VITALS: BMI 38.4
[2022-06-21 21:53] VITALS: TEMP 98.2
[2022-06-22] MEDS: HYDROcodone/Acetaminophen 10/325 mg Tablet PO PRN ×2 (05:08→09:16)
[2022-06-22 08:01] VITALS: BP 121/75
[2022-06-22] MEDS: Senokot S 8.6-50 MG TAB PO SCH (09:12)
[2022-06-22] MEDS: Ferrous Gluconate 324 MG TAB PO SCH (09:12)
[2022-06-22] MEDS: Aspirin 81 mg Enteric Coated Tablet PO SCH (09:12)
[2022-06-22] MEDS: Bupropion 150 MG XL TAB PO SCH (09:12)
[2022-06-22] MEDS: Multivitamin W/ Minerals 1 TAB PO SCH (09:13)
[2022-06-22] MEDS: Gabapentin 300 MG CAP PO SCH (09:13)
== END 2022-06-22 11:45 | disposition home or self-care (01) | DRG 561 ==
LOC: NAV ACUTE 06-12 15:05
PROVIDERS: ADMIT Family Medicine; ATTEND Family Medicine
DX: Z47.1 Aftercare following joint replacement surgery (principal); F32.A Depression, unspecified; Z96.643 Presence of artificial hip joint, bilateral; J45.909 Unspecified asthma, uncomplicated; Z87.442 Personal history of urinary calculi; Z90.49 Acquired absence of other specified parts of digestive tract; Z98.51 Tubal ligation status; Z88.6 Allergy status to analgesic agent; Z88.8 Allergy status to other drugs, medicaments and biological substances; K59.00 Constipation, unspecified
CPT/HCPCS: 36415; 80048; 85025